=== PATIENT | male | born 1995 | race Caucasian/White ===

== ENCOUNTER 2017-10-22 12:22 | Emergency (ER) | payer BC ==
[2017-10-22 12:30] VITALS: BP 161/79; PULSE 89; RESP 20; TEMP 99.4; O2SAT 97
--- NOTE | 2017-10-22 12:41 | PD ---
HPI Chief Complaint: Cold / Flu Symptoms Time Seen by Provider: 12:35 Travel History International Travel<30 days: No Contact w/Intl Traveler<30days: No Traveled to known affect area: No History of Present Illness HPI 22-year-old male presents for evaluation. For 3 days he has had cough, congestion, sore throat, chills and myalgias. The cough is productive with sputum. Symptoms are moderate, no aggravating leaving factors. He has not tried using any [id number] medications for symptom relief. Denies sick contacts. He is currently on vacation from [place]. No other complaints at this time. [facility] Social History Alcohol Use: No Tobacco Use: No Allergies-Medications (Allergen,Severity, Reaction): Coded Allergies: Sulfa (Sulfonamide Antibiotics) (Verified Allergy, Unknown, UNKNOWN, ) Reported Meds & Prescriptions Reported Meds & Active Scripts Active No Active Prescriptions or Reported Medications Review of Systems Except as stated in HPI: all other systems reviewed are Neg Physical Exam Narrative GENERAL: Well-nourished male in no acute distress SKIN: Warm and dry. HEAD: Atraumatic. Normocephalic. EYES: Pupils equal and round. No scleral icterus. No injection or drainage. ENT: No nasal bleeding or discharge. Mucous membranes pink and moist. No oral pharyngeal erythema or exudate. Tympanic membranes appear normal without erythema or fluid level. NECK: Trachea midline. No JVD. No lymphadenopathy. Neck supple full range of motion. CARDIOVASCULAR: Regular rate and rhythm. No murmur appreciated. RESPIRATORY: No accessory muscle use. Clear to auscultation. Breath sounds equal bilaterally. No crackles no wheezing or rhonchi GASTROINTESTINAL: Abdomen soft, non-tender, nondistended. Hepatic and splenic margins not palpable. Data Data Last Documented VS Vital Signs Date Time Temp Pulse Resp B/P (MAP) Pulse Ox O2 Delivery O2 Flow Rate FiO2 10/22/17 12:30 99.4 89 20 161/79 (106) 97 Orders Orders Influenzae A/B Antigen (10/22/17 12:39) Ed Discharge Order (10/22/17 13:14) MDM Medical Decision Making Medical Screen Exam Complete: Yes Emergency Medical Condition: Yes Medical Record Reviewed: Yes Differential Diagnosis Influenza, bronchitis, pneumonia, reactive airway disease, sinusitis Narrative Course 22-year-old male 4 days of cough and cold symptoms. He appears well. Influenza antigen is positive. He is outside of treatment window with Tamiflu. Stable for discharge. Diagnosis Primary Impression: Influenza A Additional Instructions: Stay well-hydrated and well-nourished. Tylenol or Motrin for fever. Return for any emergent medical conditions. Med/Other Pt SpecificInfo: No Change to Meds Scripts No Active Prescriptions or Reported Meds Disposition: 01 DISCHARGE HOME Condition: Stable Alejandro Gamez Oct 22, 2017 12:41
== END 2017-10-22 13:38 | disposition home or self-care (01) ==
LOC: PHEFT 12:22
DX: J10.1 Influenza due to other identified influenza virus with other respiratory manifestations (principal)
CPT/HCPCS: 87804; 99283